=== PATIENT | female | born 1975 | race Caucasian/White ===

== ENCOUNTER 2016-09-01 15:13 | Emergency (ER) | payer BC ==
[~2016-09-01] VITALS: Ht 162.6 cm; Wt 80.0 kg
[~2016-09-01 15:13] MED LIST: ALBU18HF INHALATION; AZIT250T6 PO; AZIT250T94; CEPH-443 PO; CIPR500T4 PO; DOCU-144 PO; FER325 PO; FLUT16SP17; HDRP454O TOP; HYDR-3498 PO; IBUP-1542 PO; PSEU1CAP; SODI75SP NASAL; TRAM50TA2 PO; UDROBDM PO
[2016-09-01 15:18] VITALS: Ht 162.6 cm; Wt 80.0 kg
[2016-09-01] MEDS ORDERED: morphine 4 MG/ML VIAL IV STA (18:46)
[2016-09-01] MEDS ORDERED: ONDANSETRON 4 MG INJ IV STA (18:46)
[2016-09-01] MEDS ORDERED: SOD CHLORIDE 0.9% 1,000 ML IV STA (18:46)
--- NOTE | 2016-09-01 19:02 | ERD ---
ER Documentation Chief Complaint Date/Time DATE: 09/01/16 TIME: 18:49 Chief Complaint ABDOMINAL PAIN SINCE 2AM THIS MORNING HPI Patient is a 40-year-old female here with left-sided flank pain since this morning, 03/06, comes and goes, and she describes it as feeling like a hammer is hitting her from the inside. She denies fever, chills, nausea, vomiting, diarrhea, chest pain, difficulty breathing, dysuria, or any other symptoms. She states that she was recently diagnosed with 2 uterine fibroids that are approximately 2.5 cm and that she disorder. 2 days ago. This pain is completely different from her usual menstrual pain. She took ibuprofen 800mg at 10 AM with no relief. ROS All systems reviewed and are negative except as per history of present illness. Medications Home Meds Active Scripts Phenazopyridine Hcl* (Pyridium*) 100 Mg Tab, 100 MG PO TID Y for URINARY PAIN, # 8 TAB Prov:AIXA RESTREPO NP 09/01/16 Acetaminophen* (Tylenol*) 325 Mg Tablet, 2 TAB PO Q6 Y for PAIN AND OR ELEVATED TEMP, #20 TAB Prov:AIXA RESTREPO NP 09/01/16 Cephalexin* (Keflex*) 500 Mg Capsule, 500 MG PO TID for 14 Days, CAP Prov:AIXA RESTREPO NP 09/01/16 Ciprofloxacin Hcl* (Ciprofloxacin Hcl*) 500 Mg Tablet, 500 MG PO BID for 7 Days , TAB Prov:YOSELYN PECK NP 07/07/16 Docusate Sodium* (Colace*) 100 Mg Capsule, 100 MG PO TID, #30 CAP Prov:YOSELYN PECK NP 07/07/16 Ferrous Sulfate* (Ferrous Sulfate*) 325 Mg Tabec, 325 MG PO BID, #60 TAB Prov:YOSELYN PECK NP 07/07/16 Ibuprofen* (Motrin*) 600 Mg Tab, 600 MG PO Q6H Y for PAIN AND OR ELEVATED TEMP, #30 TAB Prov:YOSELYN PECK NP 07/07/16 Hydrophilic Base* (Aquaphor*) 454 Gm-Topical Oint, 1 APPLIC TOP BID, #1 JAR Prov:BELLE MONTES DE OCA PA-C 03/11/16 Cephalexin* (Keflex*) 500 Mg Capsule, 500 MG PO QID for 7 Days, CAP Prov:BELLE MONTES DE OCA PA-C 03/11/16 Ibuprofen* (Motrin*) 600 Mg Tab, 600 MG PO Q6, #30 TAB Prov:BELLE MONTES DE OCA PA-C 03/11/16 Hydrocodone Bit-Acetaminophen* ([place]*) 5-325 Mg Tab, 1 TAB PO Q6 Y for PAIN, # 7 TAB Prov:SCAR BOYLE PA-C 12/14/15 Ciprofloxacin Hcl* (Ciprofloxacin Hcl*) 500 Mg Tablet, 500 MG PO BID for 10 Days , TAB Prov:SCAR BOYLE PA-C 12/14/15 Guaifenesin-Dextromethorphan* (Robitussin* DM) 100MG/10MG/5ML Syrup, 5 ML PO Q6H Y for COUGH, #120 ML 0 Refills Prov:CHEYENNE COWAN PA-C 09/11/15 Albuterol Sulfate* (Ventolin HFA*) 18 Gm Hfa.aer.ad, 2 PUFF INHALATION Q6H, #1 INHALER 0 Refills Prov:CHEYENNE COWAN PA-C 09/11/15 Tramadol HCl (Tramadol HCl) 50 Mg Tablet, 50 MG PO Q4 Y for PAIN, #10 TAB Prov:JOSE GONZALEZ I. CASH CONTROLLER 08/29/15 Sodium Chloride/Sod Bicarb (Nasa Mist Saline [place]) 75 Ml [place], 2 SPRAYS NASAL BID, #1 BOTTLE Prov:JOSE GONZALEZ I. CASH CONTROLLER 08/29/15 Azithromycin* (Azithromycin*) 250 Mg Tablet, 500 MG PO ONCE, #1 TAB Prov:JOSE GONZALEZ I. CASH CONTROLLER 08/29/15 Azithromycin* (Azithromycin*) 250 Mg Tablet, 250 MG PO DAILY, #4 TAB Prov:JOSE GONZALEZ I. CASH CONTROLLER 08/29/15 Reported Medications Fluticasone Propionate* (Fluticasone Propionate* Nasal) 16 Gm [place].susp 08/19/12 Pseudoephedrine Hcl/Chlor-Mal (Novafed-A Capsule Sa) 1 Cap.sr .12 H Cap.sr.12h 08/19/12 Azithromycin* (Zithromax*) 250 Mg Tablet 08/19/12 [None] No Conflict Check 08/18/12 Allergies Allergies: Coded Allergies: No Known Allergy (Unverified , 12/13/15) PMhx/Soc Medical and Surgical Hx: pt denies Medical Hx History of Surgery: Yes ( 2004) Anesthesia Reaction: No Hx Neurological Disorder: No Hx Respiratory Disorders: No Hx Cardiac Disorders: No Hx Psychiatric Problems: No Hx Miscellaneous Medical Probl: No Hx Alcohol Use: No Hx Substance Use: No Hx Tobacco Use: No Smoking Status: Never smoker Physical Exam Vitals Vital Signs Date Time Temp Pulse Resp B/P Pulse Ox O2 Delivery O2 Flow Rate FiO2 09/01/16 22:06 98.0 61 18 111/57 100 Room Air 09/01/16 15:18 98.6 84 22 151/71 [address] [place] [address] Radiology Main Line: [phone] DIAGNOSTIC IMAGING REPORT Patient: RICHY DODD : 1975 Age: 40 Sex: F MR #: [id number] DOS: 09/01/16 1846 Ordering MD: AIXA RESTREPO NP Location: [facility] Room/Bed: PROCEDURE: CT Abdomen and Pelvis without contrast. CLINICAL INDICATION: Abdominal pain. TECHNIQUE: CT scan of the abdomen and pelvis without contrast was performed without intravenous contrast. Coronal and sagittal reformatted images were obtained from the axial source images. Images were reviewed on a high- resolution PACS workstation. The total exam DLP equals 784 mGy-cm. One or more of the following dose reduction techniques were used: Automated exposure control Adjustment of the mA and/or kV according to patient size. Use of iterative reconstruction technique. COMPARISON: 12/13/2015 FINDINGS: There is minimal bibasilar atelectasis. The heart size is normal. The aorta and its branches are normal in size and caliber. The kidneys are symmetric in size and density. There is no perinephric fat stranding. There is no nephroureterolithiasis or hydronephrosis. The ureters are normal in course and caliber. Evaluation of solid organs is limited due to the lack of intravenous contrast. There are small calcified granulomas scattered throughout the liver. The gallbladder is unremarkable. There is no intrahepatic or extrahepatic biliary duct dilatation. There are also calcified granulomas within the spleen. The adrenal glands and pancreas are unremarkable. Evaluation of the gastrointestinal tract is limited due to the lack of oral contrast. The esophagus and stomach are unremarkable. The small bowel loops are normal in caliber without evidence of small bowel obstruction. The appendix is visualized, and is normal. There is no free intraperitoneal fluid or pneumoperitoneum. There is no mesenteric, retroperitoneal, or pelvic lymphadenopathy. The bladder is mildly distended, but grossly unremarkable. The uterus and adnexa are unremarkable. There is no pelvic free fluid. Mild degenerative disk disease is noted within the thoracolumbar spine. There are no acute fractures. There are fibrocystic changes within the right anterior femoral head neck junction. Small bone islands are also visualized within the hips and pelvis. RPTAT: QQ IMPRESSION: 1. No acute intra-abdominal abnormality. 2. Granulomatous disease with scattered calcified granulomas within the liver and spleen. .Helen Mcgovern MD, MD Date Time Electronically viewed and signed by .Helen Mcgovern MD, on 09/01/2016 21: 04 .T/ CC: AIXA RESTREPO, BRIDGETTE Physical Exam INITIAL VITAL SIGNS: Reviewed by me, afebrile, no tachycardia, oximetry 98% on room air, elevated blood pressure GENERAL: Alert. Well developed and well nourished. Appears uncomfortable. No acute distress. Nontoxic appearing. HEAD: Head is normocephalic. Atraumatic. EYES: EOMI. No scleral icterus. No conjunctival injection. ENT: External ears, nose, and mouth normal. Nasal passages patent. Moist mucous membranes. NECK: Supple. Full range of motion. Trachea midline. RESPIRATORY: No tachypnea. Clear to auscultation bilaterally. No wheezing, rales , or rhonchi. CV: Regular rate and rhythm. No murmurs, rubs, or gallops ABDOMEN: Soft, non-distended, non-tender. No guarding. No rebound. No McBurney' s point tenderness. Negative Walls sign. Bowel sounds normal in all quadrants. BACK: ++ CVA tenderness bilaterally, left greater than right. Full ROM. EXTREMITIES: No obvious deformity. No clubbing or cyanosis. No edema. SKIN: Warm and dry. No diaphoresis. No obvious rashes or lesions. NEUROLOGIC: Alert and oriented x 3. Appropriate. Face is symmetric. Speech is normal. Moves all extremities equally. Result Diagram: 09/01/16194409/01/161944 Results 24 hrs Laboratory Tests Test 09/01/16 19:45 Alanine Aminotransferase (ALT/SGPT) 27IU/L Albumin 3.9g/dl Albumin/Globulin Ratio 1.39 Alkaline Phosphatase 108IU/L Anion Gap 15 Aspartate Amino Transf (AST/SGOT) 22IU/L Basophils # 0.110^3/ul Basophils % 0.8% Blood Morphology Comment Blood Urea Nitrogen 24mg/dl Calcium Level 9.1mg/dl Carbon Dioxide Level 25mmol/L Chloride Level 105mmol/L Creatinine 0.79mg/dl Direct Bilirubin 0.00mg/dl Eosinophils # 0.510^3/ul Eosinophils % 6.1% Globulin 2.80g/dl Glucose Level 90mg/dl Hematocrit 38.1% Hemoglobin 12.8g/dl Indirect Bilirubin 0.1mg/dl Lipase 60U/L Lymphocytes # 2.610^3/ul Lymphocytes % 33.1% Mean Corpuscular Hemoglobin 28.8pg Mean Corpuscular Hemoglobin Concent 33.7g/dl Mean Corpuscular Volume 85.6fl Mean Platelet Volume 7.3fl Monocytes # 0.710^3/ul Monocytes % 8.6% Neutrophils # 4.010^3/ul Neutrophils % 51.4% Nucleated Red Blood Cells # 0.010^3/ul Nucleated Red Blood Cells % 0.0/100WBC Platelet Count 86017^3/UL Potassium Level 3.9mmol/L Red Blood Count 4.4510^6/ul Red Cell Distribution Width 14.6% Sodium Level 141mmol/L Total Bilirubin 0.1mg/dl Total Protein 6.7g/dl Urine Bacteria MODERATE Urine Bilirubin NEGATIVE Urine Clarity SLIGHTLY CLOUDY Urine Coarse Granular Casts FEW Urine Color LT. YELLOW Urine Glucose NEGATIVE% Urine Hemoglobin 3+ Urine Ketones NEGATIVE Urine Leukocyte Esterase 2+ Urine Microscopic RBC 25-50/HPF Urine Microscopic WBC 10-25/HPF Urine Nitrite NEGATIVE Urine Specific [place] 1.025 Urine Squamous Epithelial Cells MANY Urine Total Protein 2+ Urine Urobilinogen 0.2 E.U./dL Urine pH 6.0 White Blood Count 7.710^3/ul Current Medications Medications (Trade) Dose Ordered Sig/Marley Route PRN Reason Start Time Stop Time Status Last Admin Dose Admin Sodium Chloride (NS) 1,000 ml @ 1,000 mls/hr Q1H STAT IV 09/01/16 18:46 09/01/16 19:45 DC 09/01/16 19:49 Morphine Sulfate (morphine) 4 mg ONCE STAT IV 09/01/16 18:46 09/01/16 18:49 DC 09/01/16 19:51 Ondansetron HCl (Zofran Inj) 4 mg ONCE STAT IV 09/01/16 18:46 09/01/16 18:49 DC 09/01/16 19:49 Procedures/MDM Nursing Notes Reviewed Previous Medical Records requested via [employer]. EMERGENCY DEPARTMENT COURSE / MEDICAL DECISION MAKING: The patient comes to the ED secondary to left-sided flank pain since this morning. Differential diagnosis upon initial evaluation includes but is not limited to: Infected kidney stone, kidney stone, kidney injury, hydronephrosis, pyelonephritis, urinary tract infection, and others The case was discussed with supervising physician Dr. Frank. Plan of care, CT abdomen and pelvis without contrast, CBC, CMP, lipase, UA, urine , normal saline IV fluid, and pain control. The patient was treated with morphine 4 mg IV, Zofran [address] scan per radiology report: IMPRESSION: 1. No acute intra-abdominal abnormality. 2. Granulomatous disease with scattered calcified granulomas within the liver and spleen. CBC: no e/o of systemic infection or severe anemia CMP: no e/o severe acidosis, alkalosis, renal failure, diabetic ketoacidosis, liver disease Lipase: no e/o pancreatitis Urine: + e/o acute infection, + hematuria Urine : negative Otherwise within normal limits, unremarkable, or as documented above. Given that the patient has laboratory evidence of urinary tract infection and right-sided flank pain with CVA tenderness, I will treat her for pyelonephritis even though she is afebrile at this time and does not have any flulike symptoms. Final impression: pyelonephritis Based on patient's history of present illness and physical examination the decision was made to discharge. The patient was re-evaluated after ED treatment and stabilizing measures, and symptoms have improved. There is no evidence of life threatening injuries or illnesses at this time. On re-examination, patient resting in no distress, stable vital signs, reports feeling better and safe for discharge with outpatient follow up with PMD in 1-2 days. Patient given return precautions. She verbalized understanding and agreed to return precautions. She says that she has an appointment with her primary care doctor tomorrow morning. She will keep this appointment. She will return here immediately for worsening symptoms, changing symptoms, new symptoms , or any concerns. Patient's blood pressure was elevated but appears stable without evidence of hypertensive emergency, end organ damage, chest pain or shortness of breath. The patient was counseled about the risks of untreated hypertension and urged to pursue outpatient monitoring and therapy in 2-3 days with their primary care physician. Prescription Keflex Departure Diagnosis: Primary Impression: Pyelonephritis Condition: Stable AIXA RESTREPO NP Sep 01, 2016 19:01
[2016-09-01 20:10] LABS: ADD UMIC YES; URINE BILIRUBIN (Dip) NEGATIVE (NEGATIVE); URINE BLOOD (Dip) 3+ (NEGATIVE); URINE COLOR LT. YELLOW (YELLOW); URINE GLUCOSE (Dip) NEGATIVE (NEGATIVE); URINE KETONES (Dip) NEGATIVE (NEGATIVE); URINE LEUKOCYTE ESTERASE (Dip) 2+ (NEGATIVE); URINE NITRITE (Dip) NEGATIVE (NEGATIVE); URINE TOTAL PROTEIN (Dip) 2+ (NEGATIVE); URINE UROBILINOGEN (Dip) 0.2 E.U./dL (0.1-1.0)
[2016-09-01 20:26] LABS: ALBUMIN 3.9 g/dl (3.3-4.9)
[2016-09-01 20:27] LABS: POTASSIUM 3.9 mmol/L (3.5-5.1)
[2016-09-01 20:29] LABS: ALBUMIN/GLOBULIN RATIO 1.39; BILIRUBIN,INDIRECT 0.1 mg/dl (0-1.1); BILIRUBIN,TOTAL 0.1 mg/dl (0.2-1.3); CREATININE 0.79 mg/dl (0.44-1.00); TOTAL PROTEIN 6.7 g/dl (6.1-8.1)
[2016-09-01 20:30] LABS: BASOPHIL # 0.1 10^3/ul (0.0-0.1); BASOPHILS % 0.8 % (0.0-2.0); CALCIUM 9.1 mg/dl (8.4-10.2); EOSINOPHILS # 0.5 10^3/ul (0.0-0.5); EOSINOPHILS % 6.1 % (0.0-7.0); HEMATOCRIT 38.1 % (37.0-47.0); HEMOGLOBIN 12.8 g/dl (12.0-16.0); LYMPHOCYTES # 2.6 10^3/ul (0.8-2.9); LYMPHOCYTES % 33.1 % (15.0-51.0); MEAN CORPUSCULAR HEMOGLOBIN 28.8 pg (29.0-33.0); MEAN CORPUSCULAR HGB CONC 33.7 g/dl (32.0-37.0); MEAN CORPUSCULAR VOLUME 85.6 fl (82.0-101.0); MEAN PLATELET VOLUME 7.3 fl (7.4-10.4); MONOCYTE # 0.7 10^3/ul (0.3-0.9); MONOCYTES % 8.6 % (0.0-11.0); NEUTROPHILS % 51.4 % (39.0-77.0); PLATELET COUNT 351 10^3/UL (140-440); RED BLOOD COUNT 4.45 10^6/ul (4.20-5.40); RED CELL DISTRIBUTION WIDTH 14.6 % (11.5-14.5); UNCORRECTED WBC 7.7 10^3/ul (4.8-10.8); WHITE BLOOD COUNT 7.7 10^3/ul (4.8-10.8)
[2016-09-01 20:37] LABS: CONDITION 1; LH ANALYZER COMMENTS 1
[2016-09-01 20:39] LABS: URINE RBCS 25-50 /HPF (0)
[2016-09-01 20:40] LABS: BACTERIA,URINE MODERATE; SQUAMOUS EPITHELIAL CELL,UR MANY
--- NOTE | 2016-09-01 21:04 | RADRPT ---
PROCEDURE: CT Abdomen and Pelvis without contrast. CLINICAL INDICATION: Abdominal pain. TECHNIQUE: CT scan of the abdomen and pelvis without contrast was performed without intravenous co ntrast. Coronal and sagittal reformatted images were obtained from the axial source images. Images were reviewed on a high-resolution PACS workstation. The total exam DLP equals 784 mGy-cm. One or more of the following dose reduction techniques were used: Automated exposure control Adjustment of the mA and/or kV according to patient size. Use of iterative reconstruction technique. COMPARISON: 12/13/2015 FINDINGS: There is minimal bibasilar atelectasis. The heart size is normal. The aorta and its branches are normal in size and caliber. The kidneys are symmetric in size and density. There is no perinephric fat stranding. There is no ne phroureterolithiasis or hydronephrosis. The ureters are normal in course and caliber. Evaluation of solid organs is limited due to the lack of intravenous contrast. There are small calci fied granulomas scattered throughout the liver. The gallbladder is unremarkable. There is no intra hepatic or extrahepatic biliary duct dilatation. There are also calcified granulomas within the spl een. The adrenal glands and pancreas are unremarkable. Evaluation of the gastrointestinal tract is limited due to the lack of oral contrast. The esophagus and stomach are unremarkable. The small bowel loops are normal in caliber without evidence of smal l bowel obstruction. The appendix is visualized, and is normal. There is no free intraperitoneal fl uid or pneumoperitoneum. There is no mesenteric, retroperitoneal, or pelvic lymphadenopathy. The bladder is mildly distended, but grossly unremarkable. The uterus and adnexa are unremarkable. There is no pelvic free fluid. Mild degenerative disk disease is noted within the thoracolumbar spine. There are no acute fracture s. There are fibrocystic changes within the right anterior femoral head neck junction. Small bone islands are also visualized within the hips and pelvis. RPTAT: QQ IMPRESSION: 1. No acute intra-abdominal abnormality. 2. Granulomatous disease with scattered calcified granulomas within the liver and spleen. .Helen Mcgovern MD, MD Date Time Electronically viewed and signed by .Helen Mcgovern MD, on 09/01/2016 21:04 .T/
[2016-09-01] MEDS ORDERED: CEPH-443 PO (21:39)
[2016-09-01] MEDS ORDERED: ACET325T33 PO (21:39)
[2016-09-01] MEDS ORDERED: PHEN-537 PO (21:40)
[2016-09-01 22:06] VITALS: BP 111/57; PULSE 61; RESP 18; TEMP 98
== END 2016-09-01 22:09 | disposition home or self-care (01) ==
LOC: FTE 15:13
DX: N12 Tubulo-interstitial nephritis, not specified as acute or chronic (principal)
CPT/HCPCS: 74176; 80053; 81001; 83690; 85025; 87086; J2270; J2405; J7030; 36415; 81003; 96374; 96375

== ENCOUNTER 2016-11-30 15:38 | Emergency (ER) | payer BC ==
[~2016-11-30] VITALS: Ht 160 cm; Wt 80.0 kg
[~2016-11-30 15:38] MED LIST changes: +ACET325T33 PO; +PHEN-537 PO
[2016-11-30 15:41] VITALS: Ht 160 cm; Wt 80.0 kg
[2016-11-30] MEDS ORDERED: BEN50 PO (17:19)
--- NOTE | 2016-11-30 17:34 | ERD ---
ER Documentation Chief Complaint Date/Time DATE: 11/30/16 TIME: 17:28 Chief Complaint HIVES TODAY HPI 41-year-old female complaining of pruritic skin lesions on her anterior neck since last night. Patient thinks is allergic reaction. However, she denies exposure to any new foods or new cleaning products. She also has itchiness and slight puffiness on her right lower eyelid. She took diphenhydramine 25 mg OTC yesterday. Denies any other medications. Denies shortness of breath. Denies facial or oral swelling. Denies any medical history. ROS All systems reviewed and are negative except as per history of present illness. Medications Home Meds Active Scripts Diphenhydramine Hcl* (Benadryl*) 50 Mg Cap, 50 MG PO Q6H Y for ITCHING/RASH, # 30 CAP Prov:KENZIE CORTES TELEGRAPH OPERATOR 11/30/16 Phenazopyridine Hcl* (Pyridium*) 100 Mg Tab, 100 MG PO TID Y for URINARY PAIN, # 8 TAB Prov:AIXA RESTREPO NP 09/01/16 Acetaminophen* (Tylenol*) 325 Mg Tablet, 2 TAB PO Q6 Y for PAIN AND OR ELEVATED TEMP, #20 TAB Prov:AIXA RESTREPO NP 09/01/16 Cephalexin* (Keflex*) 500 Mg Capsule, 500 MG PO TID for 14 Days, CAP Prov:AIXA RESTREPO NP 09/01/16 Ciprofloxacin Hcl* (Ciprofloxacin Hcl*) 500 Mg Tablet, 500 MG PO BID for 7 Days , TAB Prov:YOSELYN PECK NP 07/07/16 Docusate Sodium* (Colace*) 100 Mg Capsule, 100 MG PO TID, #30 CAP Prov:YOSELYN PECK NP 07/07/16 Ferrous Sulfate* (Ferrous Sulfate*) 325 Mg Tabec, 325 MG PO BID, #60 TAB Prov:YOSELYN PECK NP 07/07/16 Ibuprofen* (Motrin*) 600 Mg Tab, 600 MG PO Q6H Y for PAIN AND OR ELEVATED TEMP, #30 TAB Prov:YOSELYN PECK NP 07/07/16 Hydrophilic Base* (Aquaphor*) 454 Gm-Topical Oint, 1 APPLIC TOP BID, #1 JAR Prov:BELLE MONTES DE OCA PA-C 03/11/16 Cephalexin* (Keflex*) 500 Mg Capsule, 500 MG PO QID for 7 Days, CAP Prov:BELLE MONTES DE OCA PA-C 03/11/16 Ibuprofen* (Motrin*) 600 Mg Tab, 600 MG PO Q6, #30 TAB Prov:BELLE MONTES DE OCA PA-C 03/11/16 Hydrocodone Bit-Acetaminophen* ([place]*) 5-325 Mg Tab, 1 TAB PO Q6 Y for PAIN, # 7 TAB Prov:SCAR BOYLE PA-C 12/14/15 Ciprofloxacin Hcl* (Ciprofloxacin Hcl*) 500 Mg Tablet, 500 MG PO BID for 10 Days , TAB Prov:SCAR BOYLE PA-C 12/14/15 Guaifenesin-Dextromethorphan* (Robitussin* DM) 100MG/10MG/5ML Syrup, 5 ML PO Q6H Y for COUGH, #120 ML 0 Refills Prov:CHEYENNE COWAN PA-C 09/11/15 Albuterol Sulfate* (Ventolin HFA*) 18 Gm Hfa.aer.ad, 2 PUFF INHALATION Q6H, #1 INHALER 0 Refills Prov:CHEYENNE COWAN PA-C 09/11/15 Tramadol HCl (Tramadol HCl) 50 Mg Tablet, 50 MG PO Q4 Y for PAIN, #10 TAB Prov:JOSE GONZALEZ I. TELEGRAPH OPERATOR 08/29/15 Sodium Chloride/Sod Bicarb (Nasa Mist Saline [place]) 75 Ml [place], 2 SPRAYS NASAL BID, #1 BOTTLE Prov:JOSE GONZALEZ NP 08/29/15 Azithromycin* (Azithromycin*) 250 Mg Tablet, 500 MG PO ONCE, #1 TAB Prov:JOSE GONZALEZ NP 08/29/15 Azithromycin* (Azithromycin*) 250 Mg Tablet, 250 MG PO DAILY, #4 TAB Prov:JOSE GONZALEZ NP 08/29/15 Reported Medications Fluticasone Propionate* (Fluticasone Propionate* Nasal) 16 Gm [place].susp 08/19/12 Pseudoephedrine Hcl/Chlor-Mal (Novafed-A Capsule Sa) 1 Cap.sr .12 H Cap.sr.12h 08/19/12 Azithromycin* (Zithromax*) 250 Mg Tablet 08/19/12 [None] No Conflict Check 08/18/12 Allergies Allergies: Coded Allergies: No Known Allergy (Unverified , 11/30/16) PMhx/Soc Medical and Surgical Hx: pt denies Medical Hx History of Surgery: Yes ( 2005) Anesthesia Reaction: No Hx Neurological Disorder: No Hx Respiratory Disorders: No Hx Cardiac Disorders: No Hx Psychiatric Problems: No Hx Miscellaneous Medical Probl: No Hx Alcohol Use: No Hx Substance Use: No Hx Tobacco Use: No Smoking Status: Never smoker Physical Exam Vitals Vital Signs Date Time Temp Pulse Resp B/P Pulse Ox O2 Delivery O2 Flow Rate FiO2 11/30/16 15:41 99.1 87 18 137/82 99 Physical Exam General: Well-developed, well-nourished, conscious and coherent, in no distress Skin: Warm and dry, good texture and turgor. Confluent, erythematous maculopapular lesions noted on the anterior neck. No rashes or lesions elsewhere. Head: Normocephalic without evidence of trauma Eyes: Sclera and conjunctivae normal; pupils equal, round, and reactive to light; extraocular movements are intact. No surrounding erythema or swelling. Mouth/throat: Mucous membranes are moist. Posterior pharynx clear without erythema or exudates. No oral or pharyngeal swelling. Neck: Supple without meningismus or adenopathy. Carotids are equal. Trachea midline. No bruits or JVD. Chest: Normal AP diameter. Good expansion without retractions. Nontender. Lungs are clear to auscultate bilaterally with good tidal volume Heart: Regular rate and rhythm. No murmur, rub, or gallops heard Abdomen: Soft and nontender without masses, guarding, or rebound. Bowel sounds are active. No hepatosplenomegaly Neuro: Alert and oriented 4, GCS 15. Cranial nerves II-XII intact. Motor and sensory exams nonfocal. Moves all extremities. Speech clear. Gait normal Procedures/MDM Well-appearing 41-year-old female presented to ED with what appeared to be allergic urticaria. No sign of anaphylaxis. Since her urticaria has very limited distribution, I did not feel oral steroids is necessary. Patient appears well, stable for discharge and outpatient management. Medical decision making shared with patient and family. Education provided to patient and family. Patient and family expressed understanding of the plan. Medications on discharge: Diphenhydramine. Follow-up: Primary care provider in 2-3 days or return to ED if worse. Departure Diagnosis: Primary Impression: Rash Condition: Good Patient Instructions: Allergic Reaction, Other (General) Referrals: [facility]IN[facility] PIERRE MD (PCP) [facility] Usted se penn hecho un examen mdico de control que le indica que no est en jolie condicin que requiera tratamiento urgente en el Departamento de Emergencia. Un estudio ms profundo y el tratamiento de ku condicin pueden esperar sin ningn riesgo hasta que usted sea atendida/o en el consultorio de ku mdico o jolie cl sean. Es responsabilidad suya arreglar jolie era para el seguimiento del arcenio. MANEJO DE CONDICIONES NO URGENTES EN EL FUTURO 1) Si usted tiene un mdico de atencin primaria: Usted debera llamar a ku mdico de atencin primaria antes de venir al departamento de emergencia. Despus de las horas de consultorio, ku doctor o ku asociado/a est disponible por telfono. El mdico o enfermero de tod en el servicio telefnico puede asesorarle por anand medio para atender el problema, o arcenio contrario se puede programar jolie era. 2) Si usted no tiene un mdico de atencin primaria: Llame al mdico o clnica de referencia que aparece abajo nancy las horas de consultorio para hacer jolie era para que le vean. CLINICAS: [facility] [phone] [id number] [facility] [phone] [address] [facility] [phone] [address] [facility] [phone] [id number] [facility] [phone] [address] [facility] [phone] [address] Additional Instructions: Llame al doctor MAANA y brendan jolie ERA PARA DENTRO DE 2-3 BIANCHI.Dgale a la secretaria que nosotros le instruimos hacer esta era.Avise o llame si ku condicin se empeora antes de la era. Regresa aqui si peor o no mejor. KENZIE CORTES NP November 30, 2016 17:34
== END 2016-11-30 17:25 | disposition home or self-care (01) ==
LOC: FTE 15:38
DX: R21 Rash and other nonspecific skin eruption (principal)
CPT/HCPCS: 99283

== ENCOUNTER 2017-01-19 09:14 | Emergency (ER) | payer BC ==
[~2017-01-19] VITALS: Ht 157.5 cm; Wt 89.0 kg
[~2017-01-19 09:14] MED LIST changes: +BEN50 PO
[2017-01-19 09:17] VITALS: Ht 157.5 cm; Wt 89.0 kg
[2017-01-19] MEDS ORDERED: METHYLPREDNISOLONE 125 MG INJ IM ONE (10:00)
[2017-01-19] MEDS ORDERED: DIPHENHYDRAMINE 25 MG CAP PO ONE (10:00)
[2017-01-19] MEDS ORDERED: FAMOTIDINE 20 MG TAB PO ONE (10:00)
--- NOTE | 2017-01-19 10:04 | RADRPT ---
PROCEDURE: XR Chest. CLINICAL INDICATION: Cough TECHNIQUE: A single portable view of the chest was obtained. COMPARISON: 09/11/2015 FINDINGS: The cardiomediastinal silhouette is within normal limits. The left hemidiaphragm is elevated. The aleks ngs and pleural spaces are clear. The soft tissues and osseous structures are unremarkable. IMPRESSION: No acute cardiopulmonary disease. RPTAT: HPNM Physician Dennis Date Time Electronically viewed and signed by Skip Polanco Physician on 01/19/2017 10:04 /
[2017-01-19] MEDS ORDERED: PRED20TA PO (10:58)
[2017-01-19] MEDS ORDERED: BEN25 PO (10:58)
[2017-01-19] MEDS ORDERED: IBUP-1542 PO (10:58)
[2017-01-19] MEDS ORDERED: IBUPROFEN 600 MG TAB PO ONE (11:00)
--- NOTE | 2017-01-19 12:16 | ERD ---
ER Documentation Chief Complaint Date/Time DATE: 01/19/17 TIME: 12:[address],intermittent rash HPI 41-year-old female patient with no significant past history presents to the ED complaining of sore throat, dry cough that started 3 days ago. Reports that it is difficult to breathe at times however denies any shortness of breath. Reports that she also developed a rash about 2 weeks ago that was similar to her urticaria that was diagnosed here on November 30, 2016. Denies any chest pain, wheezing, abdominal pain, nausea, vomiting, diarrhea. Denies any new use of soaps or detergents. Denies wearing any new clothing. Denies any exposure to pets or insects. Denies others having the same rash. States that it is slightly itchy. Denies any pain to the rash. States that she has not taken any medications for her cough. ROS All systems reviewed and are negative except as per history of present illness. Medications Home Meds Active Scripts Prednisone* (Prednisone*) 20 Mg Tab, 40 MG PO DAILY for 4 Days, TAB Prov:CROAZON FARR PA-C 01/19/17 Diphenhydramine Hcl* (Benadryl*) 25 Mg Cap, 25 MG PO Q6 Y for ITCHING/RASH, #30 TAB Prov:CORAZON FARR PA-C 01/19/17 Ibuprofen* (Motrin*) 600 Mg Tab, 600 MG PO Q6, #30 TAB Prov:CORAZON FARR PA-C 01/19/17 Diphenhydramine Hcl* (Benadryl*) 50 Mg Cap, 50 MG PO Q6H Y for ITCHING/RASH, # 30 CAP Prov:KENZIE CORTES PRESENTATION MANAGER 11/30/16 Phenazopyridine Hcl* (Pyridium*) 100 Mg Tab, 100 MG PO TID Y for URINARY PAIN, # 8 TAB Prov:AIXA RESTREPO, PRESENTATION MANAGER 09/01/16 Acetaminophen* (Tylenol*) 325 Mg Tablet, 2 TAB PO Q6 Y for PAIN AND OR ELEVATED TEMP, #20 TAB Prov:AIXA RESTREPO, PRESENTATION MANAGER 09/01/16 Cephalexin* (Keflex*) 500 Mg Capsule, 500 MG PO TID for 14 Days, CAP Prov:AIXA RESTREPO, PRESENTATION MANAGER 09/01/16 Ciprofloxacin Hcl* (Ciprofloxacin Hcl*) 500 Mg Tablet, 500 MG PO BID for 7 Days , TAB Prov:YOSELYN PECK NP 07/07/16 Docusate Sodium* (Colace*) 100 Mg Capsule, 100 MG PO TID, #30 CAP Prov:YOSELYN PECK NP 07/07/16 Ferrous Sulfate* (Ferrous Sulfate*) 325 Mg Tabec, 325 MG PO BID, #60 TAB Prov:YOSELYN PECK NP 07/07/16 Ibuprofen* (Motrin*) 600 Mg Tab, 600 MG PO Q6H Y for PAIN AND OR ELEVATED TEMP, #30 TAB Prov:YOSELYN PECK NP 07/07/16 Hydrophilic Base* (Aquaphor*) 454 Gm-Topical Oint, 1 APPLIC TOP BID, #1 JAR Prov:BELLE MONTES DE OCA PA-C 03/11/16 Cephalexin* (Keflex*) 500 Mg Capsule, 500 MG PO QID for 7 Days, CAP Prov:BELLE MONTES DE OCA PA-C 03/11/16 Ibuprofen* (Motrin*) 600 Mg Tab, 600 MG PO Q6, #30 TAB Prov:BELLE MONTES DE OCA PA-C 03/11/16 Hydrocodone Bit-Acetaminophen* ([place]*) 5-325 Mg Tab, 1 TAB PO Q6 Y for PAIN, # 7 TAB Prov:SCAR BOYLE PA-C 12/14/15 Ciprofloxacin Hcl* (Ciprofloxacin Hcl*) 500 Mg Tablet, 500 MG PO BID for 10 Days , TAB Prov:SCAR BOYLE PA-C 12/14/15 Guaifenesin-Dextromethorphan* (Robitussin* DM) 100MG/10MG/5ML Syrup, 5 ML PO Q6H Y for COUGH, #120 ML 0 Refills Prov:CHEYENNE COWAN PA-C 09/11/15 Albuterol Sulfate* (Ventolin HFA*) 18 Gm Hfa.aer.ad, 2 PUFF INHALATION Q6H, #1 INHALER 0 Refills Prov:CHEYENNE COWAN PA-C 09/11/15 Tramadol HCl (Tramadol HCl) 50 Mg Tablet, 50 MG PO Q4 Y for PAIN, #10 TAB Prov:JOSE GONZALEZ NP 08/29/15 Sodium Chloride/Sod Bicarb (Nasa Mist Saline [place]) 75 Ml [place], 2 SPRAYS NASAL BID, #1 BOTTLE Prov:JOSE GONZALEZ I. PRESENTATION MANAGER 08/29/15 Azithromycin* (Azithromycin*) 250 Mg Tablet, 500 MG PO ONCE, #1 TAB Prov:JOSE GONZALEZ I. PRESENTATION MANAGER 08/29/15 Azithromycin* (Azithromycin*) 250 Mg Tablet, 250 MG PO DAILY, #4 TAB Prov:JOSE GONZALEZ I. PRESENTATION MANAGER 08/29/15 Reported Medications Fluticasone Propionate* (Fluticasone Propionate* Nasal) 16 Gm [place].susp 08/19/12 Pseudoephedrine Hcl/Chlor-Mal (Novafed-A Capsule Sa) 1 Cap.sr .12 H Cap.sr.12h 08/19/12 Azithromycin* (Zithromax*) 250 Mg Tablet 08/19/12 [None] No Conflict Check 08/18/12 Allergies Allergies: Coded Allergies: No Known Allergy (Unverified , 11/30/16) PMhx/Soc History of Surgery: No Anesthesia Reaction: No Hx Neurological Disorder: No Hx Respiratory Disorders: No Hx Cardiac Disorders: No Hx Psychiatric Problems: No Hx Miscellaneous Medical Probl: No Hx Alcohol Use: No Hx Substance Use: No Hx Tobacco Use: No Smoking Status: Never smoker Physical Exam Vitals Vital Signs Date Time Temp Pulse Resp B/P Pulse Ox O2 Delivery O2 Flow Rate FiO2 01/19/17 09:17 98.1 87 18 139/69 99 Physical Exam Const: [id number]-[id number], well-nourished. In no acute distress. Head: Atraumatic, normocephalic Eyes: Normal Conjunctiva without injection. No purulent discharge. PERRL. EOMI ENT: Normal external ear. Ear canal without erythema. Tympanic membrane pearly christianson without effusion or bulging. Nasal canal clear with normal turbinates. Moist oropharynx without tonsillar exudates. Non-erythematous pharynx. Uvula midline. No drooling. No trismus. Neck: Full range of motion. No meningismus. No cervical lymphadenopathy. Resp: Clear to auscultation bilaterally. No wheezing, rhonchi, rales, or crackles. No accessory muscle use. No retractions. Cardio: Regular rate and rhythm. No murmurs, rubs or gallops. Abd: Soft, non tender, non distended. Normal bowel sounds. No palpable masses. No rebound tenderness. No guarding. Skin: No petechiae, purpura. Erythematous blanching wheals noted on the anterior chest region and on the face. No fluctuance or induration. No purulent discharge. No bleeding noted. Back: No midline tenderness. No CVA tenderness. Ext: No cyanosis, or edema. Neur: Awake and alert. Psych: Normal Mood and Affect Results 24 hrs Current Medications Medications (Trade) Dose Ordered Sig/Marley Route PRN Reason Start Time Stop Time Status Last Admin Dose Admin Methylprednisolone Sodium Succinate (Solu-Medrol) 125 mg ONCE ONCE IM 01/19/17 10:00 01/19/17 10:01 DC 01/19/17 09:43 Diphenhydramine HCl (Benadryl) 25 mg ONCE ONCE PO 01/19/17 10:00 01/19/17 10:01 DC 01/19/17 09:43 Famotidine (Pepcid) 20 mg ONCE ONCE PO 01/19/17 10:00 01/19/17 10:01 DC 01/19/17 09:43 Ibuprofen (Motrin) 600 mg ONCE ONCE PO 01/19/17 11:00 01/19/17 11:01 DC 01/19/17 10:39 Procedures/MDM This is a 41-year-old female patient with no significant past medical history presents the ED complaining of sore throat, dry cough, rash. Patient is afebrile and nontoxic-appearing. Patient has normal vital signs. A chest x- ray was ordered to further evaluate patient. Urine was negative. Patient was treated here in the ED with Solu-Medrol, Ibuprofen, Benadryl and Famotidine with improvement of her symptoms. PROCEDURE: XR Chest. CLINICAL INDICATION: Cough TECHNIQUE: A single portable view of the chest was obtained. COMPARISON: 09/11/2015 FINDINGS: The cardiomediastinal silhouette is within normal limits. The left hemidiaphragm is elevated. The lungs and pleural spaces are clear. The soft tissues and osseous structures are unremarkable. IMPRESSION: No acute cardiopulmonary disease. This patient presents to the ED with symptoms consistent with a viral acute upper respiratory infection. Patient is afebrile and has normal vital signs. Patient's physical exam include lungs which were clear to auscultation and a normal pulse oximetry. There is a low suspicion for pneumonia, pneumothorax, mononucleosis, pulmonary embolism, epiglottitis, otitis media, otitis externa, viral/strep pharyngitis, sinusitis, peritonsillar abscess, mastoiditis, retropharyngeal abscess, meningitis, sepsis, acute abdomen or other emergent conditions. Fluids, rest, and symptomatic treatment are recommended for the management of patient's symptoms. Patient symptoms are likely secondary to urticaria due to unknown allergy. Other differential diagnosis considered include but is not limited to allergic contact dermatitis, urticaria, insect bites, eczema, tinea infection, psoriasis. Low suspicion for scabies, SJS/TEN, erythema multiforme, sepsis, cellulitis, necrotizing fascitis, gangrene, meningococcemia or other emergent conditions. Discharge medications: Prednisone, Benadryl, Ibuprofen Patient was instructed to return to the ED for any new or worsening symptoms for referral to obtain allergy testing. They should otherwise follow up with the primary care provider within 1-2 days. The patient's questions were answered at the time of discharge. Patient understood and agreed with discharge management. Departure Diagnosis: Primary Impression: Sore throat Additional Impression: Rash Condition: Stable Patient Instructions: When You Have a Sore Throat, Self-Care for Sore Throats, Allergic Reaction, Other (General) Referrals: [facility] Usted se penn hecho un examen mdico de control que le indica que no est en jolie condicin que requiera tratamiento urgente en el Departamento de Emergencia. Un estudio ms profundo y el tratamiento de ku condicin pueden esperar sin ningn riesgo hasta que usted sea atendida/o en el consultorio de ku mdico o jolie cl sean. Es responsabilidad suya arreglar jolie era para el seguimiento del arcenio. MANEJO DE CONDICIONES NO URGENTES EN EL FUTURO 1) Si usted tiene un mdico de atencin primaria: Usted debera llamar a ku mdico de atencin primaria antes de venir al departamento de emergencia. Despus de las horas de consultorio, ku doctor o ku asociado/a est disponible por telfono. El mdico o enfermero de tod en el servicio telefnico puede asesorarle por anand medio para atender el problema, o arcenio contrario se puede programar jolie era. 2) Si usted no tiene un mdico de atencin primaria: Llame al mdico o clnica de referencia que aparece abajo nancy las horas de consultorio para hacer jolie era para que le vean. CLINICAS: [facility] [phone] [facility] [phone] [facility] [phone] [address] [facility] [place] [id number] [phone] [facility]. [place] [id number] [phone] [facility]. [phone] [address] [facility]. [facility] () Usted se penn hecho un examen mdico de control que le indica que no est en jolie condicin que requiera tratamiento urgente en el Departamento de Emergencia. Un estudio ms profundo y el tratamiento de ku condicin pueden esperar sin ningn riesgo hasta que usted sea atendida/o en el consultorio de ku mdico o jolie cl sean. Es responsabilidad suya arreglar jolie era para el seguimiento del arcenio. MANEJO DE CONDICIONES NO URGENTES EN EL FUTURO 1) Si usted tiene un mdico de atencin primaria: Usted debera llamar a ku mdico de atencin primaria antes de venir al departamento de emergencia. Despus de las horas de consultorio, ku doctor o ku asociado/a est disponible por telfono. El mdico o enfermero de tod en el servicio telefnico puede asesorarle por anand medio para atender el problema, o arcenio contrario se puede programar jolie era. 2) Si usted no tiene un mdico de atencin primaria: Llame al mdico o condado institucions de referencia que aparece abajo nancy las horas de consultorio para hacer jolie era para que le vean. SI USTED NO PUEDE PAGAR PARA CLARENCE UN MEDICO puede ir a: [facility] [address] [place] [address] [facility] [address] [place] [address] [facility] [address] [place] [address] [facility] [address] [place], [place] [id number] Additional Instructions: Llame al doctor MAANA y brendan jolie ERA PARA DENTRO DE 2-3 BIANCHI para jolie referencia a pruebas de alergia. Dgale a la secretaria que nosotros le instruimos hacer esta era.Avise o llame si ku condicin se empeora antes de la era. Regresa aqui si peor o no mejor. CORAZON FARR PA-C Jan 19, 2017 12:15
== END 2017-01-19 11:21 | disposition home or self-care (01) ==
LOC: FTE 09:14
DX: J02.9 Acute pharyngitis, unspecified (principal); R21 Rash and other nonspecific skin eruption; R05 Cough
CPT/HCPCS: 71010; 96372; 99284; J2930; Z7610

== ENCOUNTER 2017-01-31 18:29 | Emergency (ER) | payer BC ==
[~2017-01-31] VITALS: Ht 149.9 cm; Wt 82.5 kg
[~2017-01-31 18:29] MED LIST changes: +BEN25 PO; +PRED20TA PO
[2017-01-31 18:34] VITALS: Ht 149.9 cm; Wt 82.5 kg
[2017-01-31] MEDS ORDERED: DICY10CA60 PO (19:39)
[2017-01-31] MEDS ORDERED: LOPE2CAP PO (19:39)
--- NOTE | 2017-01-31 19:52 | ERD ---
ER Documentation Chief Complaint Date/Time DATE: 01/31/17 TIME: 19:43 Chief Complaint diarrhea x3 days. +nausea no vomiting/fever HPI This is a 41-year-old female presents to the ER for watery diarrhea for the last 3 days. Patient denies any blood or mucus in her diarrhea. She denies any nausea or vomiting. She denies fever. Patient does admit to a mild headache. She denies any neck pain or neck stiffness. Patient does admit to some mild crampy abdominal pain which is worse whenever she does have a bowel movement. Patient denies any urinary frequency or dysuria. ROS 12 point review of systems was done, all negative except per HPI. Medications Home Meds Active Scripts Dicyclomine Hcl* (Bentyl*) 10 Mg Capsule, 10 MG PO QID for 7 Days, CAP Prov:LILIANE LOYD 01/31/17 Loperamide Hcl* (Imodium*) 2 Mg Capsule, 2 MG PO .AFTER EA LOOSE BM Y for DIARRHEA, #20 TAB Prov:LILIANE LOYD 01/31/17 Prednisone* (Prednisone*) 20 Mg Tab, 40 MG PO DAILY for 4 Days, TAB Prov:CORAZON FARR PA-C 01/19/17 Diphenhydramine Hcl* (Benadryl*) 25 Mg Cap, 25 MG PO Q6 Y for ITCHING/RASH, #30 TAB Prov:CORAZON FARR-C 01/19/17 Ibuprofen* (Motrin*) 600 Mg Tab, 600 MG PO Q6, #30 TAB Prov:CORAZON FARR PA-C 01/19/17 Diphenhydramine Hcl* (Benadryl*) 50 Mg Cap, 50 MG PO Q6H Y for ITCHING/RASH, # 30 CAP Prov:KENZIE CORTES LABORER WRECKING AND SALVAGING 11/30/16 Phenazopyridine Hcl* (Pyridium*) 100 Mg Tab, 100 MG PO TID Y for URINARY PAIN, # 8 TAB Prov:AIXA RESTREPO, LABORER WRECKING AND SALVAGING 09/01/16 Acetaminophen* (Tylenol*) 325 Mg Tablet, 2 TAB PO Q6 Y for PAIN AND OR ELEVATED TEMP, #20 TAB Prov:AIXA RESTREPO, LABORER WRECKING AND SALVAGING 09/01/16 Cephalexin* (Keflex*) 500 Mg Capsule, 500 MG PO TID for 14 Days, CAP Prov:AIXA RESTREPO NP 09/01/16 Ciprofloxacin Hcl* (Ciprofloxacin Hcl*) 500 Mg Tablet, 500 MG PO BID for 7 Days , TAB Prov:YOSELYN PECK NP 07/07/16 Docusate Sodium* (Colace*) 100 Mg Capsule, 100 MG PO TID, #30 CAP Prov:YOSELYN PECK NP 07/07/16 Ferrous Sulfate* (Ferrous Sulfate*) 325 Mg Tabec, 325 MG PO BID, #60 TAB Prov:YOSELYN PECK NP 07/07/16 Ibuprofen* (Motrin*) 600 Mg Tab, 600 MG PO Q6H Y for PAIN AND OR ELEVATED TEMP, #30 TAB Prov:YOSELYN PECK NP 07/07/16 Hydrophilic Base* (Aquaphor*) 454 Gm-Topical Oint, 1 APPLIC TOP BID, #1 JAR Prov:BELLE MONTES DE OCA PA-C 03/11/16 Cephalexin* (Keflex*) 500 Mg Capsule, 500 MG PO QID for 7 Days, CAP Prov:BELLE MONTES DE OCA PA-C 03/11/16 Ibuprofen* (Motrin*) 600 Mg Tab, 600 MG PO Q6, #30 TAB Prov:BELLE MONTES DE OCA PA-C 03/11/16 Hydrocodone Bit-Acetaminophen* ([place]*) 5-325 Mg Tab, 1 TAB PO Q6 Y for PAIN, # 7 TAB Prov:SCAR BOYLE PA-C 12/14/15 Ciprofloxacin Hcl* (Ciprofloxacin Hcl*) 500 Mg Tablet, 500 MG PO BID for 10 Days , TAB Prov:SCAR BOYLE PA-C 12/14/15 Guaifenesin-Dextromethorphan* (Robitussin* DM) 100MG/10MG/5ML Syrup, 5 ML PO Q6H Y for COUGH, #120 ML 0 Refills Prov:CHEYENNE COWAN PA-C 09/11/15 Albuterol Sulfate* (Ventolin HFA*) 18 Gm Hfa.aer.ad, 2 PUFF INHALATION Q6H, #1 INHALER 0 Refills Prov:CHEYENNE COWAN PA-C 09/11/15 Tramadol HCl (Tramadol HCl) 50 Mg Tablet, 50 MG PO Q4 Y for PAIN, #10 TAB Prov:JOSE GONZALEZ I. LABORER WRECKING AND SALVAGING 08/29/15 Sodium Chloride/Sod Bicarb (Nasa Mist Saline [place]) 75 Ml [place], 2 SPRAYS NASAL BID, #1 BOTTLE Prov:JOSE GONZALEZ I. LABORER WRECKING AND SALVAGING 08/29/15 Azithromycin* (Azithromycin*) 250 Mg Tablet, 500 MG PO ONCE, #1 TAB Prov:JOSE GONZALEZ I. LABORER WRECKING AND SALVAGING 08/29/15 Azithromycin* (Azithromycin*) 250 Mg Tablet, 250 MG PO DAILY, #4 TAB Prov:JOSE GONZALEZ I. LABORER WRECKING AND SALVAGING 08/29/15 Reported Medications Fluticasone Propionate* (Fluticasone Propionate* Nasal) 16 Gm [place].susp 08/19/12 Pseudoephedrine Hcl/Chlor-Mal (Novafed-A Capsule Sa) 1 Cap.sr .12 H Cap.sr.12h 08/19/12 Azithromycin* (Zithromax*) 250 Mg Tablet 08/19/12 [None] No Conflict Check 08/18/12 Allergies Allergies: Coded Allergies: No Known Allergy (Unverified , 11/30/16) PMhx/Soc History of Surgery: No Anesthesia Reaction: No Hx Neurological Disorder: No Hx Respiratory Disorders: No Hx Cardiac Disorders: No Hx Psychiatric Problems: No Hx Miscellaneous Medical Probl: No Hx Alcohol Use: No Hx Substance Use: No Hx Tobacco Use: No Physical Exam Vitals Vital Signs Date Time Temp Pulse Resp B/P Pulse Ox O2 Delivery O2 Flow Rate FiO2 01/31/17 18:34 98.2 73 18 136/65 99 Physical Exam GENERAL: The patient is well-developed, well-nourished, in no acute distress. HEENT: Atraumatic. The oropharynx is clear with no erythema or exudates and the mucosa is moist. No signs of dehydration. RESPIRATORY: Clear to auscultation bilaterally. There are no rales, wheezes or rhonchi. HEART: Regular rate and rhythm. No murmurs, clicks, rubs or gallops. ABDOMEN: Soft, nontender, nondistended. Active bowel sounds in all 4 quadrants. No rebounding or guarding. Negative McBurney point tenderness. NEUROLOGIC: Alert and oriented. SKIN: There is no rash. The skin is warm and dry. Normal capillary refill. Procedures/MDM This is a 41-year-old female presents to the ER with a 3 day history of watery diarrhea. Is likely viral in etiology. Suspicion for infectious colitis, IBS, Crohn's, ulcerative colitis is low. Patient is extremely well-appearing and denies blood in her diarrhea. Patient is afebrile and has not had a history of fevers. Suspicion for acute abdomen is low, patient's abdominal exam is completely benign. I do not believe that further testing is needed as patient is able to tolerate p.o. fluids and her physical examination is normal. Patient will be sent home with Imodium with Bentyl. Patient is to follow-up with her PCP within 1-2 days or return to ER sooner if symptoms worsen. My medical decision making was shared with the patient she understands and agrees with plan. Departure Diagnosis: Primary Impression: Diarrhea Condition: Stable Patient Instructions: Treating Diarrhea Referrals: AMINTA PIERRE MD (PCP) Additional Instructions: Llame al doctor RODRIGUEZ y brendan jolie ERA PARA DENTRO DE 1-2 BIANCHI.Dgale a la secretaria que nosotros le instruimos hacer esta era.Avise o llame si ku condicin se empeora antes de la era. Regresa aqui si peor o no mejor. LILIANE LOYD Jan 31, 2017 19:52
== END 2017-01-31 20:09 | disposition home or self-care (01) ==
LOC: FTE 18:29
DX: R19.7 Diarrhea, unspecified (principal)
CPT/HCPCS: 99283

== ENCOUNTER 2017-08-10 16:51 | Emergency (ER) | END 2017-08-10 17:21 | disposition home or self-care (01) ==

== ENCOUNTER 2017-08-19 17:38 | Emergency (ER) | END 2017-08-19 19:45 | disposition home or self-care (01) ==

== ENCOUNTER 2017-09-07 09:28 | Emergency (ER) | END 2017-09-07 11:54 | disposition home or self-care (01) ==

== ENCOUNTER 2018-03-02 19:14 | Emergency (ER) | END 2018-03-02 21:35 | disposition home or self-care (01) ==

== ENCOUNTER → 2018-09-21 | Emergency (ER) | payer BC ==
[~2018-09-21] VITALS: Wt 87.5 kg
[~2018-09-21] MED LIST changes: +AZIT250T; +AZIT250T PO; +AZIT250T13 PO; -AZIT250T6 PO; -AZIT250T94; +CETI10CA PO; +DICY10CA40 PO; +FLUT9.9S NASAL; +GUAI-637 PO; +GUAI5SYR2 PO; +HC30CR25 TOP; +LOPE2CAP PO; +MED4DP PO; +NAPH15DR69 BOTH EYES; +PSEU120T12 PO; -UDROBDM PO
[2018-09-21 20:11] VITALS: BP 130/77; PULSE 88; RESP 20
--- NOTE | 2018-09-21 20:12 | ERD ---
ER Documentation Chief Complaint Chief Complaint REDNESS, ITCH, SWELLING BELOW R EYE; NO S/S RESP DISTRESS HPI 42-year-old female presents to the ED complaining of itchy rash on her face be low her eyes and on her face for the past week. She denies any trouble breathing, wheezing. She denies nausea vomiting. Patient does not know what she is allergic to. She has not tried medication for this. She denies joint pain ROS All systems reviewed and are negative except as per history of present illness. Medications Home Meds Active Scripts Hydrocortisone* Topical (Hydrocortisone* Topical) 2.5%-28.3 Gm Cream..g., 1 APPLIC TOP BID for 7 Days, TUB Prov:AMINATA YEE PA-C 09/21/18 Diphenhydramine Hcl* (Benadryl*) 25 Mg Cap, 25 MG PO Q6 PRN for ITCHING/RASH, #30 TAB Prov:AMINATA YEE PA-C 09/21/18 Cephalexin* (Keflex*) 500 Mg Capsule, 500 MG PO QID for 5 Days, CAP Prov:YOSELYN PECK NP 03/02/18 Ibuprofen* (Motrin*) 600 Mg Tab, 600 MG PO Q6H PRN for PAIN AND OR ELEVATED TEMP, #30 TAB Prov:YOSELYN PECK NP 03/02/18 Prednisone (Prednisone) 20 Mg Tablet, 20 MG PO BID for 5 Days, #10 TAB Prov:SKYE HAYWARD PA-C 09/07/17 Albuterol Sulfate* (Ventolin HFA*) 18 Gm Hfa.aer.ad, 2 PUFF INHALATION Q4H, #1 INHALER Prov:SKYE HAYWARD PA-C 09/07/17 Naphazoline-Pheniramine* (Visine-A*) 15 Ml Drops, 2 DROP BOTH EYES Q4H PRN for RED EYES, #1 BOT Prov:YOSELYN PECK NP 08/19/17 Cetirizine Hcl* (Zyrtec*) 10 Mg Capsule, 10 MG PO DAILY, #20 TAB.CHEW Prov:YOSELYN PECK NP 08/19/17 Fluticasone Propionate (Flonase Allergy Relief) 9.9 Ml [place].susp, 1 SPRAY NASAL BID, #1 BOTTLE TO EACH NOSTRIL Prov:YOSELYN PECK GASKET MAKER 08/19/17 Pseudoephedrine Hcl (Sudafed 12 Hour) 120 Mg Tablet.sa, 120 MG PO BID for 5 Days Prov:LILIANE LOYD Iva 08/10/17 Methylprednisolone* (Medrol* DOSE PACK) 4 Mg/Dose-Pack Tab.ds.pk, 4 MG PO . DIRECTED for 6 Days, PACKET Prov:LILIANE LOYD Iva 08/10/17 Guaifenesin* (Robitussin*) 100 Mg/5 Ml Syrup, 200 MG PO Q6H PRN for COUGH for 3 Days, ML Prov:LILIANE LOYD Iva 08/10/17 Azithromycin* (Zithromax*) 250 Mg Tablet, 250 MG PO .ZPACK DIRECTED, #6 TAB TAKE 500 MG (2 TABS) THE FIRST DAY THEN 250 MG (1 TAB) DAYS 2-5 Prov:BARRINGTON LOYDCHERRY Enirque 08/10/17 Dicyclomine HCl (Dicyclomine HCl) 10 Mg Capsule, 10 MG PO QID for 7 Days, CAP Prov:BARRINGTON LOYDCHERRY Enrique 01/31/17 Loperamide Hcl* (Imodium*) 2 Mg Capsule, 2 MG PO .AFTER EA LOOSE BM PRN for DIARRHEA, #20 TAB Prov:BARRINGTON LOYDCHERRY Enrique 01/31/17 Prednisone* (Prednisone*) 20 Mg Tab, 40 MG PO DAILY for 4 Days, TAB Prov:CORAZON FARR PA-C 01/19/17 Diphenhydramine Hcl* (Benadryl*) 25 Mg Cap, 25 MG PO Q6 PRN for ITCHING/RASH, #30 TAB Prov:CORAZON FARR PA-C 01/19/17 Ibuprofen* (Motrin*) 600 Mg Tab, 600 MG PO Q6, #30 TAB Prov:CORAZON FARR PA-C 01/19/17 Diphenhydramine Hcl* (Benadryl*) 50 Mg Cap, 50 MG PO Q6H PRN for ITCHING/RASH, #30 CAP Prov:KENZIE CORTES NP 11/30/16 Phenazopyridine Hcl* (Pyridium*) 100 Mg Tab, 100 MG PO TID PRN for URINARY PAIN, #8 TAB Prov:AIXA RESTREPO, GASKET MAKER 09/01/16 Acetaminophen* (Tylenol*) 325 Mg Tablet, 2 TAB PO Q6 PRN for PAIN AND OR ELEVATED TEMP, #20 TAB Prov:AIXA RESTREPO, GASKET MAKER 09/01/16 Cephalexin* (Keflex*) 500 Mg Capsule, 500 MG PO TID for 14 Days, CAP Prov:AIXA RESTREPO, GASKET MAKER 09/01/16 Ciprofloxacin Hcl* (Ciprofloxacin Hcl*) 500 Mg Tablet, 500 MG PO BID for 7 Days, TAB Prov:YOSELYN PECK NP 07/07/16 Docusate Sodium* (Colace*) 100 Mg Capsule, 100 MG PO TID, #30 CAP Prov:YOSELYN PECK NP 07/07/16 Ferrous Sulfate* (Ferrous Sulfate*) 325 Mg Tabec, 325 MG PO BID, #60 TAB Prov:YOSELYN PECK NP 07/07/16 Ibuprofen* (Motrin*) 600 Mg Tab, 600 MG PO Q6H PRN for PAIN AND OR ELEVATED TEMP, #30 TAB Prov:YOSELYN PECK NP 07/07/16 Hydrophilic Base* (Aquaphor*) 454 Gm-Topical Oint, 1 APPLIC TOP BID, #1 JAR Prov:BELLE MONTES DE OCA PA-C 03/11/16 Cephalexin* (Keflex*) 500 Mg Capsule, 500 MG PO QID for 7 Days, CAP Prov:BELLE MONTES DE OCA PA-C 03/11/16 Ibuprofen* (Motrin*) 600 Mg Tab, 600 MG PO Q6, #30 TAB Prov:BELLE MONTES DE OCA PA-C 03/11/16 Hydrocodone Bit-Acetaminophen* ([place]*) 5-325 Mg Tab, 1 TAB PO Q6 PRN for PAIN, #7 TAB Prov:SCAR BOYLE PA-C 12/14/15 Ciprofloxacin Hcl* (Ciprofloxacin Hcl*) 500 Mg Tablet, 500 MG PO BID for 10 Days, TAB Prov:SCAR BOYLE PA-C 12/14/15 Guaifenesin-Dextromethorphan* (Robitussin* DM) 100MG/10MG/5ML Syrup, 5 ML PO Q6H PRN for COUGH, #120 ML 0 Refills Prov:CHEYENNE COWAN PA-C 09/11/15 Albuterol Sulfate* (Ventolin HFA*) 18 Gm Hfa.aer.ad, 2 PUFF INHALATION Q6H, #1 INHALER 0 Refills Prov:CAMRYNCHEYENNE VIERA 09/11/15 Tramadol HCl (Tramadol HCl) 50 Mg Tablet, 50 MG PO Q4 PRN for PAIN, #10 TAB Prov:JOSE GONZALEZ I. GASKET MAKER 08/29/15 Sodium Chloride/Sod Bicarb (Nasa Mist Saline [place]) 75 Ml [place], 2 SPRAYS NASAL BID, #1 BOTTLE Prov:JOSE GONZALEZ I. GASKET MAKER 08/29/15 Azithromycin* (Azithromycin*) 250 Mg Tablet, 500 MG PO ONCE, #1 TAB Prov:JOSE GONZALEZ I. GASKET MAKER 08/29/15 Azithromycin* (Azithromycin*) 250 Mg Tablet, 250 MG PO DAILY, #4 TAB Prov:JOSE GONZALEZ I. GASKET MAKER 08/29/15 Reported Medications Fluticasone Propionate* (Fluticasone Propionate* Nasal) 16 Gm [place].susp 08/19/12 Pseudoephedrine Hcl/Chlor-Mal (Novafed-A Capsule Sa) 1 Cap.sr .12 H Cap.sr.12h 08/19/12 Azithromycin* (Zithromax*) 250 Mg Tablet 08/19/12 [None] No Conflict Check 08/18/12 Allergies Allergies: Coded Allergies: No Known Allergy (Unverified , 11/30/16) PMhx/Soc History of Surgery: No Anesthesia Reaction: No Hx Neurological Disorder: No Hx Respiratory Disorders: Yes (ASTHMA) Hx Cardiac Disorders: No Hx Psychiatric Problems: No Hx Miscellaneous Medical Probl: No Hx Alcohol Use: No Hx Substance Use: No Hx Tobacco Use: No Smoking Status: Never smoker Physical Exam Vitals Vital Signs Date Temp Pulse Resp B/P (MAP) Pulse Ox O2 O2 Flow FiO2 Time Delivery Rate 09/21/18 98.1 85 19 129/83 97 17:49 (98) Physical Exam Const: No acute distress Head: Atraumatic Eyes: Normal Conjunctiva ENT: Normal External Ears, Nose and Mouth. Neck: Full range of motion. No meningismus. Resp: Clear to auscultation bilaterally Cardio: Regular rate and rhythm, no murmurs Abd: Soft, non tender, non distended. Normal bowel sounds Skin: Mild erythema to below patient's eyes bilaterally Back: No midline or flank tenderness Ext: No cyanosis, or edema Neur: Awake and alert Psych: Normal Mood and Affect Procedures/MDM This is a 42-year-old female presenting to the ED complaining of facial itchiness and rash, this is likely allergic dermatitis. She does not have any evidence of anaphylaxis. Patient looks well and stable to be discharged home. I have given her prescription for Benadryl and hydrocortisone, I have given her the risk factors for hydrocortisone discussed with her to not use it longer than a week. Discussed with her to follow with a electrical experimental mechanic. She understands agrees with plan Departure Diagnosis: Primary Impression: Rash Condition: Stable Patient Instructions: Self-Care for Skin Rashes, Contact Dermatitis Referrals: DOCTOR,NOT ON STAFF (PCP) Additional Instructions: Visite a ku mdmook urias para un EXAMEN.Regrese a estas instalaciones si no se mejora karolina esperbamos o karolina le dijimos. [place] toda la medicina marissa y karolina se le indic. Regrese a estas instalaciones si no se mejora karolina esperbamos o karolina le dijimos. La medicina que se le recet puede causarle sueo.NO DEBE MANEJAR NI OPERAR MAQUINARIAS PELIGROSAS mientras esta tomando esta medicina! AMINATA YEE PA-C Sep 21, 2018 20:12
== END | disposition home or self-care (01) ==
LOC: FTE 16:50
DX: R21 Rash and other nonspecific skin eruption (principal); J45.909 Unspecified asthma, uncomplicated
CPT/HCPCS: 99282

== ENCOUNTER 2018-12-18 14:33 | Emergency (ER) | payer BC ==
[~2018-12-18] VITALS: Ht 149.9 cm; Wt 87.9 kg
[2018-12-18 14:37] VITALS: Ht 149.9 cm; Wt 87.9 kg
[2018-12-18] MEDS ORDERED: SOD CHLORIDE 0.9% 1,000 ML IV STA (15:26)
[2018-12-18] MEDS ORDERED: LORAZEPAM 0.5 MG TAB PO ONE (15:30)
[2018-12-18 16:51] VITALS: BP 134/87; PULSE 74; RESP 20
--- NOTE | 2018-12-18 17:50 | ERD ---
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 There was no seizure activity and she denies bowel or bladder incontinence. She does have a history of anxiety and complains of full body paresthesias now. Patient denies headache or neck pain, no slurred speech, no weakness in her arms or legs, no chest pain or shortness of breath. ROS All systems reviewed and are negative except as per history of present illness. Medications Home Meds Discontinued Reported Medications Fluticasone Propionate* (Fluticasone Propionate* Nasal) 16 Gm [place].susp 08/19/12 Pseudoephedrine Hcl/Chlor-Mal (Novafed-A Capsule Sa) 1 Cap.sr .12 H Cap.sr.12h 08/19/12 Azithromycin* (Zithromax*) 250 Mg Tablet 08/19/12 [None] No Conflict Check 08/18/12 Discontinued Scripts Hydrocortisone* Topical (Hydrocortisone* Topical) 2.5%-28.3 Gm Cream..g., 1 APPLIC TOP BID for 7 Days, TUB Prov:AMINATA YEE PA-C 09/21/18 Diphenhydramine Hcl* (Benadryl*) 25 Mg Cap, 25 MG PO Q6 PRN for ITCHING/RASH, #30 TAB Prov:AMINATA YEE PA-C 09/21/18 Cephalexin* (Keflex*) 500 Mg Capsule, 500 MG PO QID for 5 Days, CAP Prov:YOSELYN PECK NP 03/02/18 Ibuprofen* (Motrin*) 600 Mg Tab, 600 MG PO Q6H PRN for PAIN AND OR ELEVATED TEMP, #30 TAB Prov:YOSELYN PECK NP 03/02/18 Prednisone (Prednisone) 20 Mg Tablet, 20 MG PO BID for 5 Days, #10 TAB Prov:SKYE HAYWARD PA-C 09/07/17 Albuterol Sulfate* (Ventolin HFA*) 18 Gm Hfa.aer.ad, 2 PUFF INHALATION Q4H, #1 INHALER Prov:SKYE HAYWARD PA-C 09/07/17 Naphazoline-Pheniramine* (Visine-A*) 15 Ml Drops, 2 DROP BOTH EYES Q4H PRN for RED EYES, #1 BOT Prov:YOSELYN PECK NP 08/19/17 Cetirizine Hcl* (Zyrtec*) 10 Mg Capsule, 10 MG PO DAILY, #20 TAB.CHEW Prov:YOSELYN PECK YOUTH SPECIALIST 08/19/17 Fluticasone Propionate (Flonase Allergy Relief) 9.9 Ml [place].susp, 1 SPRAY NASAL BID, #1 BOTTLE TO EACH NOSTRIL Prov:YOSELYN PECK NP 08/19/17 Pseudoephedrine Hcl (Sudafed 12 Hour) 120 Mg Tablet.sa, 120 MG PO BID for 5 Days Prov:LILIANE LOYD 08/10/17 Methylprednisolone* (Medrol* DOSE PACK) 4 Mg/Dose-Pack Tab.ds.pk, 4 MG PO . DIRECTED for 6 Days, PACKET Prov:LILIANE LOYD 08/10/17 Guaifenesin* (Robitussin*) 100 Mg/5 Ml Syrup, 200 MG PO Q6H PRN for COUGH for 3 Days, ML Prov:LILIANE LOYD 08/10/17 Azithromycin* (Zithromax*) 250 Mg Tablet, 250 MG PO .ZPACK DIRECTED, #6 TAB TAKE 500 MG (2 TABS) THE FIRST DAY THEN 250 MG (1 TAB) DAYS 2-5 Prov:LILIANE LOYD 08/10/17 Dicyclomine HCl (Dicyclomine HCl) 10 Mg Capsule, 10 MG PO QID for 7 Days, CAP Prov:LILIANE LOYD 01/31/17 Loperamide Hcl* (Imodium*) 2 Mg Capsule, 2 MG PO .AFTER EA LOOSE BM PRN for DIARRHEA, #20 TAB Prov:LILIANE LOYD 01/31/17 Prednisone* (Prednisone*) 20 Mg Tab, 40 MG PO DAILY for 4 Days, TAB Prov:CORAZON FARRC 01/19/17 Diphenhydramine Hcl* (Benadryl*) 25 Mg Cap, 25 MG PO Q6 PRN for ITCHING/RASH, #30 TAB Prov:CORAZON FARR PA-C 01/19/17 Ibuprofen* (Motrin*) 600 Mg Tab, 600 MG PO Q6, #30 TAB Prov:CORAZON FARR PA-C 01/19/17 Diphenhydramine Hcl* (Benadryl*) 50 Mg Cap, 50 MG PO Q6H PRN for ITCHING/RASH, #30 CAP Prov:KENZIE CORTES YOUTH SPECIALIST 11/30/16 Phenazopyridine Hcl* (Pyridium*) 100 Mg Tab, 100 MG PO TID PRN for URINARY PAIN, #8 TAB Prov:AIXA RESTREPO, YOUTH SPECIALIST 09/01/16 Acetaminophen* (Tylenol*) 325 Mg Tablet, 2 TAB PO Q6 PRN for PAIN AND OR ELEVATED TEMP, #20 TAB Prov:AIXA RESTREPO, YOUTH SPECIALIST 09/01/16 Cephalexin* (Keflex*) 500 Mg Capsule, 500 MG PO TID for 14 Days, CAP Prov:AIXA RESTREPO, YOUTH SPECIALIST 09/01/16 Ciprofloxacin Hcl* (Ciprofloxacin Hcl*) 500 Mg Tablet, 500 MG PO BID for 7 Days, TAB Prov:YOSELYN PECK NP 07/07/16 Docusate Sodium* (Colace*) 100 Mg Capsule, 100 MG PO TID, #30 CAP Prov:YOSELYN PECK YOUTH SPECIALIST 07/07/16 Ferrous Sulfate* (Ferrous Sulfate*) 325 Mg Tabec, 325 MG PO BID, #60 TAB Prov:YOSELYN PECK NP 07/07/16 Ibuprofen* (Motrin*) 600 Mg Tab, 600 MG PO Q6H PRN for PAIN AND OR ELEVATED TEMP, #30 TAB Prov:YOSELYN PECK YOUTH SPECIALIST 07/07/16 Hydrophilic Base* (Aquaphor*) 454 Gm-Topical Oint, 1 APPLIC TOP BID, #1 JAR Prov:BELLE MONTES DE OCA PA-C 03/11/16 Cephalexin* (Keflex*) 500 Mg Capsule, 500 MG PO QID for 7 Days, CAP Prov:BELLE MONTES DE OCA PA-C 03/11/16 Ibuprofen* (Motrin*) 600 Mg Tab, 600 MG PO Q6, #30 TAB Prov:PROUSE,BELLE M. PA-C 03/11/16 Hydrocodone Bit-Acetaminophen* ([place]*) 5-325 Mg Tab, 1 TAB PO Q6 PRN for PAIN, #7 TAB Prov:SCAR BOYLE PA-C 12/14/15 Ciprofloxacin Hcl* (Ciprofloxacin Hcl*) 500 Mg Tablet, 500 MG PO BID for 10 Days, TAB Prov:SCAR BOYLE PA-C 12/14/15 Guaifenesin-Dextromethorphan* (Robitussin* DM) 100MG/10MG/5ML Syrup, 5 ML PO Q6H PRN for COUGH, #120 ML 0 Refills Prov:CHEYENNE COWAN PA-C 09/11/15 Albuterol Sulfate* (Ventolin HFA*) 18 Gm Hfa.aer.ad, 2 PUFF INHALATION Q6H, #1 INHALER 0 Refills Prov:CHEYENNE COWAN PA-C 09/11/15 Tramadol HCl (Tramadol HCl) 50 Mg Tablet, 50 MG PO Q4 PRN for PAIN, #10 TAB Prov:JOSE GONZALEZ I. YOUTH SPECIALIST 08/29/15 Sodium Chloride/Sod Bicarb (Nasa Mist Saline [place]) 75 Ml [place], 2 SPRAYS NASAL BID, #1 BOTTLE Prov:JOSE GONZALEZ I. YOUTH SPECIALIST 08/29/15 Azithromycin* (Azithromycin*) 250 Mg Tablet, 500 MG PO ONCE, #1 TAB Prov:JOSE GONZALEZ I. YOUTH SPECIALIST 08/29/15 Azithromycin* (Azithromycin*) 250 Mg Tablet, 250 MG PO DAILY, #4 TAB Prov:JOSE GONZALEZ I. YOUTH SPECIALIST 08/29/15 Allergies Allergies: Coded Allergies: No Known Allergy (Unverified , 12/18/18) PMhx/Soc Anxiety Medical and Surgical Hx: pt denies Surgical Hx History of Surgery: No Anesthesia Reaction: No Hx Neurological Disorder: No Hx Respiratory Disorders: Yes (ASTHMA) Hx Cardiac Disorders: No Hx Psychiatric Problems: No Hx Miscellaneous Medical Probl: No Hx Alcohol Use: No Hx Substance Use: No Hx Tobacco Use: No Smoking Status: Never smoker FmHx Family History: No diabetes Physical Exam Vitals Vital Signs Date Temp Pulse Resp B/P (MAP) Pulse Ox O2 O2 Flow FiO2 Time Delivery Rate 12/18/18 74 20 134/87 100 Room Air 16:51 (103) 5/24/19 98.1 68 18 108/74 100 Room Air 15:20 (85) 12/18/18 98.5 71 16 152/76 99 14:37 (101) Physical Exam GENERAL: Well-developed, well-nourished, well-hydrated, in no apparent distress, looks nontoxic in appearance HEENT: Moist mucous membranes, pink conjunctiva, no cervical spine tenderness or step-off deformities, no goiter, no jaundice or icterus, extraocular movements intact without pain. No submandibular induration, and no pharyngeal erythema NEURO: Alert and oriented 3, cranial nerves II through XII intact bilaterally, pupils equal round reactive to light, no focal deficits or facial asymmetry, sensation intact distally Strength 5/5 in upper and lower extremities bilaterally CARDIAC: Regular rate and rhythm, no murmurs rubs or gallops LUNGS: Clear bilaterally no wheezing crackles or stridor ABDOMEN: Soft nontender, no guarding, no rigidity, no rebound, no psoas sign no obturator sign. Normoactive bowel sounds SKIN: Warm and dry to touch, no abrasions, contusions, or hematomas, no lacerations, no ecchymosis, no target lesions, and without ulcers EXTREMITIES: No clubbing cyanosis or edema, calves are bilaterally symmetrical, no Homans sign, no popliteal cord sign. Distal pulses equal and bilateral PSYCH: Normal affect without agitation or irritability Result Diagram: 12/18/18 1552 12/18/18 1551 Results 24 hrs Laboratory Tests Test 12/18/18 14:42 12/18/18 15:38 12/18/18 15:51 12/18/18 15:52 Bedside Glucose 98 mg/dL POC Beta HCG, NEGATIVE Qualitative Sodium Level 139 mmol/L Potassium Level 3.8 mmol/L Chloride Level 106 mmol/L Carbon Dioxide 26 mmol/L Level Anion Gap 7 Blood Urea 16 mg/dl Nitrogen Creatinine 0.83 mg/dl Est Glomerular > 60 mL/min Filtrat Rate mL/min Glucose Level 105 mg/dl Calcium Level 8.8 mg/dl Total Bilirubin 0.3 mg/dl Direct Bilirubin 0.00 mg/dl Indirect 0.3 mg/dl Bilirubin Aspartate Amino 38 IU/L Transf (AST/SGOT) Alanine 53 IU/L Aminotransferase (ALT/SGPT) Alkaline 109 IU/L Phosphatase Troponin I < 0.012 ng/ml Total Protein 6.9 g/dl Albumin 3.9 g/dl Globulin 3.00 g/dl Albumin/Globulin 1.30 Ratio Lipase 73 U/L White Blood Count 6.2 10^3/ul Red Blood Count 4.40 10^6/ul Hemoglobin 12.3 g/dl Hematocrit 37.0 % Mean Corpuscular 84.1 fl Volume Mean Corpuscular 28.0 pg Hemoglobin Mean Corpuscular 33.2 g/dl Hemoglobin Concen t Red Cell 14.1 % Distribution Width Platelet Count 329 10^3/UL Mean Platelet 8.7 fl Volume Immature 0.500 % Granulocytes % Neutrophils % 46.8 % Lymphocytes % 36.7 % Monocytes % 9.7 % Eosinophils % 5.3 % Basophils % 1.0 % Nucleated Red 0.0 /100WBC Blood Cells % Immature 0.030 10^3/ul Granulocytes # Neutrophils # 2.9 10^3/ul Lymphocytes # 2.3 10^3/ul Monocytes # 0.6 10^3/ul Eosinophils # 0.3 10^3/ul Basophils # 0.1 10^3/ul Nucleated Red 0.0 10^3/ul Blood Cells # Urine Color YELLOW Urine Clarity CLEAR Urine pH 6.0 Urine Specific 1.025 [place] Urine Ketones NEGATIVE mg/dL Urine Nitrite NEGATIVE mg/dL Urine Bilirubin NEGATIVE mg/dL Urine NEGATIVE mg/dL Urobilinogen Urine Leukocyte TRACE Rivera/ul Esterase Urine Microscopic 1 /HPF RBC Urine Microscopic 1 /HPF WBC Urine Squamous FEW /HPF Epithelial Cells Urine Mucus FEW /HPF Urine Hemoglobin NEGATIVE mg/dL Urine Glucose NEGATIVE mg/dL Urine Total NEGATIVE mg/dl Protein Current Medications Medications Dose Sig/Marley Start Time Status Last (Trade) Ordered Route PRN Stop Time Admin Dose Reason Admin Lorazepam 0.5 mg ONCE ONCE 12/18/18 DC 12/18/18 (Ativan) PO 15:30 16:01 12/18/18 15:31 Sodium 1,000 ml @ Q1H STAT 12/18/18 DC 12/18/18 Chloride 1,000 mls/hr IV 15:26 16:01 12/18/18 16:25 Procedures/MDM IV line was established patient was placed on hall monitor rhythm strip revealed a sinus rhythm at about 80 bpm with upright P and T waves. Patient was afebrile EKG performed, read by me: 75 bpm, normal sinus rhythm, normal axis, no acute ST segment changes, narrow QRS complex, with good R-wave progression in precordial leads. Administer 1 L normal saline IV and lorazepam 0.5 mg p.o. x1 for anxiety. CBC and electrolytes were normal, liver function tests normal, troponin negative, urinalysis negative for infection, test negative Patient's vital signs are normal and she is asymptomatic at this time, looks well and has no concerning points on history or physical exam. Differential diagnoses considered, included but not limited to acute coronary syndrome, pulmonary embolism, aortic dissection, abdominal aortic aneurysm, sepsis, stroke, meningitis, encephalitis, pneumonia, appendicitis, cholecystitis, bowel obstruction, pyelonephritis, nephrolithiasis, cystitis, as well as metabolic, hematologic, and electrolyte abnormalities. As well as ab scess, cellulitis, fractures, and dislocations. Patient feels much better at this time, and vital signs are normal, symptoms have improved. I did give strict instructions to return to the ED if symptoms continue or worsen, patient will otherwise follow-up with primary care physician. Patient understood instructions and agreed to plan. Disclaimer: Inadvertent spelling and grammatical errors are likely due to EHR/dictation software use and do not reflect on the overall quality of patient care. Also, please note that the electronic time recorded on this note does not necessarily reflect the actual time of the patient encounter. Departure Diagnosis: Primary Impression: Syncope Syncope type: vasovagal syncope Qualified Codes: R55 - Syncope and collapse Additional Impression: Paresthesias Condition: Good Patient Instructions: Syncope, Vasovagal VARUN RAMIREZ MD December 18, 2018 17:50
== END 2018-12-18 16:53 | disposition home or self-care (01) ==
LOC: E/R 14:33
DX: R55 Syncope and collapse (principal); J45.909 Unspecified asthma, uncomplicated; R20.2 Paresthesia of skin
CPT/HCPCS: 36415; 80053; 81001; 81025; 82962; 83690; 84484; 85025; 99284; J7030; Z7610